=== PATIENT | male | born 1975 | race Caucasian/White ===

== ENCOUNTER 2018-08-13 06:46 | Emergency (ER) | payer OTHER ==
[~2018-08-13] VITALS: Ht 187.9 cm; Wt 117.9 kg
[~2018-08-13 06:46] MED LIST: CLARITIN10 MG PO; FLONASE0.05 MG/AC NS; MULTIPLE VITAMI1 CAP PO
[2018-08-13] MEDS ORDERED: CLARITIN-D 121 EACH PO (07:21)
[2018-08-13] MEDS ORDERED: LEVOFLOXACIN500 MG PO (07:21)
== END 2018-08-13 07:22 | disposition home or self-care (01) ==
LOC: ED 06:46
DX: H66.91 Otitis media, unspecified, right ear (principal); R09.81 Nasal congestion; Z79.899 Other long term (current) drug therapy